=== PATIENT | male | born 1950 | race Caucasian/White ===

== ENCOUNTER 2016-09-19 16:52 | Inpatient (IN) ==
[2016-09-19] MEDS ORDERED: *HR* HYDROmorphone (PF) 1 MG/ML SYRINGE IVP ONE (18:23)
[2016-09-19] MEDS ORDERED: Ondansetron 4 MG/2 ML VIAL IVP ONE (18:23)
--- NOTE | 2016-09-19 18:32 | Emergency Department Note ---
Disposition Clinical Impression: Mucocele of appendix, Mass of cecum Abdominal pain Qualifiers: Abdominal location: right lower quadrant Qualified Code(s): R10.31 - Right lower quadrant pain Appendicitis Qualifiers: Appendicitis type: acute appendicitis Acute appendicitis type: with localized peritonitis Qualified Code(s): K35.3 - Acute appendicitis with localized peritonitis Disposition: Still a Patient Condition: Fair [facility]errals: [facility] [Primary Care Provider] - Forms: Work/School Release, ED Satisfaction Letter Abdominal Pain HPI - General Chief Complaint: ED Abdominal Pain Stated Complaint: ABD pain Time Seen by Provider: 09/19/16 18:03 Source: patient Mode of arrival: ambulatory Limitations: no limitations Nursing Notes Reviewed: Yes Vital Signs Reviewed: Yes - History of Present Illness HPI Narrative: Patient here for evaluation of abdominal pain. Abdominal pain started approximately one month ago but has been worsening in nature over the last week and acutely worse over the last several days.. Patient now complains of significant pain to the right lower quadrant. Patient has tenderness to the right lower quadrant as well as throughout the ascending colon. Patient's pain is worse with movement. Mother with breast cancer in her 40s. Dad had heart attack and relatively early. No other family history of cancer. Patient is a current smoker. Pain Scale: 10 - Related Data Allergies Allergy/AdvReac Type Severity Reaction Status Date / Time No Known Allergies Allergy Verified 09/19/16 16:58 Constitutional: Denies: fever, chills Cardiovascular: Denies: chest pain, palpitations Respiratory: Denies: cough, dyspnea Gastrointestinal: Reports: abdominal pain, nausea. Denies: vomiting, diarrhea, hematemesis Psychiatric: Denies: anxiety Endocrine: Denies: fatigue Abdominal Pain PMH - Past Medical History Medical history: Reports: GERD, hyperlipidemia, hypertension Male Surgical History: Reports: coronary bypass (CABG) Psychiatric history: Reports: PTSD - Social History Smoking status: Current every day smoker Alcohol use: Reports: rarely Drug use: Reports: none Physical Exam - General Limitations: no limitations General appearance: alert - Head Head exam: atraumatic, normocephalic - Eye Eye exam: Present: normal appearance - ENT ENT exam: normal exam, normal oropharynx - Neck Neck exam: Present: normal inspection - Chest Chest inspection: Present: normal inspection - Respiratory Respiratory exam: Present: normal lung sounds bilaterally. Absent: respiratory distress, wheezes - Cardiovascular Cardiovascular exam: Present: regular rate, normal rhythm - Abdominal Exam Abdominal exam: Present: soft, tenderness, guarding, rebound Abdominal tenderness: Present: RLQ, moderate - Extremities Exam Extremities exam: Present: normal inspection - Back Exam Back exam: Present: normal inspection - Neurological Exam Neurological exam: Present: alert, oriented X3 - Psychiatric Psychiatric exam: Present: normal affect, normal mood - Skin Skin exam: Present: warm, dry, intact Course - Reevaluation(s) Reevaluation #1: Patient educated extensively about CT scan findings. Patient awaiting evaluation by surgeon. Pain currently controlled. - Consultations Consultation #1: Discussed with Dr. Ramos. Patient will be evaluated in the emergency department after the surgery he is currently performing. Vital Signs Temperature 98.3 F 09/19/16 16:58 Pulse Rate 77 09/19/16 16:58 Respiratory Rate 16 09/19/16 16:58 Blood Pressure 157/89 09/19/16 16:58 O2 Sat by Pulse Oximetry 95 09/19/16 16:58 Temperature 98.3 F 09/19/16 16:58 Pulse Rate 77 09/19/16 16:58 Respiratory Rate 16 09/19/16 16:58 Blood Pressure 157/89 09/19/16 16:58 O2 Sat by Pulse Oximetry 95 09/19/16 16:58 Oxygen Delivery Oxygen Delivery Room Air
--- NOTE | 2016-09-19 18:33 | Emergency Department Note ---
START Narrative - START START: I examined this patient and my medical decision-making was reviewed with the MARKETING INFORMATION ANALYST/PA/Advanced Practice Nurse/Resident Physician. I agree with the documented findings, disposition and treatment plan as described except to the extent set forth below. ED attending: Patient's emergency medicine resident Dr. Parham. Please see copy of this note for H&P evaluation and management and ED disposition. We both had independent [id number] time in contact with this patient. Briefly: 66-year-old male right lower quadrant pain CT scan results per patient report from the [facility] 2 days ago she just dilated appendix consistent with possible acute appendicitis. Patient will get repeat labs and CT scan and surgical consult tonight. Disposition pending, admission possible, patient stable.
[2016-09-19 19:11] LABS: Basophils % 0.5 %; Eosinophils # 0.5 K/mcL (0.0-0.6); Eosinophils % 5.3 %; Hematocrit 45.4 % (37.5-50.1); Hemoglobin 15.2 g/dL (12.9-16.9); Immature Granulocytes % 0.5 % (0-4); Lymphocytes # 1.9 K/mcL (0.6-4.6); Lymphocytes % 22.1 %; Mean Corpuscular HGB Conc 33.5 g/dL (31.6-35.5); Mean Corpuscular Hemoglobin 30.8 pg (28.0-33.3); Mean Corpuscular Volume 92.1 fL (83.0-100.0); Mean Platelet Volume 8.8 fL (9.4-12.4); Monocytes # 1.2 K/mcL (0.0-1.3); Monocytes % 14.1 %; Platelet Count 223 K/mcL (140-400); Red Blood Count 4.93 M/mcL (4.19-5.50); Red Cell Distribution Width 13.1 % (11.5-14.5); Segmented Neutrophils % 57.5 %
[2016-09-19 19:19] LABS: INR 1.1; Prothrombin Time 12.2 Seconds (9.4-12.1)
[2016-09-19 19:21] LABS: Alanine Aminotransferase 29 Units/L (0-55); Albumin 3.3 g/dL (3.5-5.0); Albumin/Globulin Ratio 0.7 (1.1-2.2); Alkaline Phosphatase 131 Units/L (38-126); Aspartate Amino Transferase 25 Units/L (5-34); BUN/Creatinine Ratio 11 (6-26); Bilirubin,Direct 0.3 mg/dL (0.0-0.5); Bilirubin,Indirect 0.2 mg/dL (0.0-1.2); Bilirubin,Total 0.5 mg/dL (0.2-1.2); Blood Urea Nitrogen 9 mg/dL (8-26); Calcium 9.4 mg/dL (8.6-10.8); Carbon Dioxide 26 mEq/L (19-29); Chloride 102 mEq/L (98-109); Globulin 4.6 g/dL (2.4-3.5); Glucose 89 mg/dL (70-99); Lipase 29 Units/L (8-78); Osmolality,Calculated 280 (280-300); Potassium 4.3 mEq/L (3.5-4.5); Sodium 136 mEq/L (136-145); Total Protein 7.9 g/dL (6.0-8.3); eGFR For African Americans > 60 (> 60); eGFR For Non-African Americans > 60 (> 60)
--- NOTE | 2016-09-19 22:10 | General Surg History&Physical ---
Date of Encounter: 09/19/16 Time of Encounter: 22:07 Assessment and Plan (1) Mucocele of appendix Current Visit: Yes Status: Acute The assessment and plan as outlined above was discussed with the patient and/or family members who expressed understanding and agreement. All questions were answered. Explanted the patient that I personally reviewed the CT scan images showing an appendiceal mucocele likely due to a cecal obstruction of the origin of orifice of the appendix. This is concerning for mass effects or cancer. There is also an apparent possible mass in the liver which will require further evaluation. I would first like to schedule for colonoscopy after giving the bowel prep this evening. I did express to the patient this part of the evaluation process as to the etiology behind his abnormal CAT scan findings. Patient agrees with the above plan. History of Present Illness Chief complaint: Right lower abdominal pain HPI: Mr. Pena is a 66 year old male with a past medical history significant for CAD , presents to the ED with a 2 month history of episodic right lower abdominal pain. He states that over the past week the pain has worsened and increased in severity, and last night he had the onset of severe RLQ pain with nausea and dry heaves. He denies any diarrhea or constipation ad has never had a colonoscopy in the past. He denies any family history of colon cancer. He did have a CT scan of the abdomen and pelvis which showed a dilated appendix likely related to a mucocele, and an abnormality in the cecum concerning for a cecal mass as well as a possible liver lesion. Past Med Surg Social Fam HX - Past Medical History Medical history: GERD, hyperlipidemia, hypertension Psychiatric history: PTSD - Past Surgical History Surgical History: coronary bypass (CABG) (x3-2009) - Social History Smoking Status: Current every day smoker Smokeless Tobacco Status: No Alcohol use: rarely Drug use: none Medications and Allergies Atorvastatin Calcium [Lipitor] 10 mg PO DAILY 09/20/16 [History] Cetirizine HCl [All Day Allergy] 10 mg PO DAILY 09/20/16 [History] Docusate [Colace] 100 mg PO BID PRN #60 capsule 09/20/16 [Rx] Lisinopril [Zestril] 20 mg PO DAILY 09/20/16 [History] Metoprolol Tartrate 25 mg PO BID 09/20/16 [History] OxyCODONE/APAP 5/325 [Percocet 5/325 MG] 1 each PO Q6HR PRN #30 tablet 09/20/16 [Rx] Pantoprazole Sodium [Protonix] 40 mg PO DAILY 09/20/16 [History] Ranitidine HCl [Acid Piece Meat Trimmer] 150 mg PO BID 09/20/16 [History] Allergies albuterol [From DuoNeb] Allergy (Verified 09/20/16 10:15) See Comments etodolac Allergy (Verified 09/20/16 10:14) See Comments ipratropium [From DuoNeb] Allergy (Verified 09/20/16 10:15) See Comments bee stings Allergy (Uncoded 09/20/16 10:15) See Comments Review of Systems All systems PM: reviewed and no additional remarkable complaints except as stated All systems PM: A 10-system review of systems was performed and is negative for pertinent findings except as documented above in the HPI. General Surgery Exam Initial Vital Signs Temp Pulse Resp BP Pulse Ox 98.3 F 77 16 157/89 95 09/19/16 16:58 09/19/16 16:58 09/19/16 16:58 09/19/16 16:58 09/19/16 16:58 - General physical appearance well developed, well nourished, moderate distress - Eyes PERRL, normal ocular movement - Neck no masses, trachea midline, no lymphadectomy - Respiratory normal expansion, normal respiratory effort, clear to auscultation - Cardiovascular Cardiovascular exam: Present: RRR, no murmurs/rubs/gallops - Abdomen Abdomen general surgery: Present: bowel sounds present, soft (Obese), tender ( RLQ pain to palpation.) - Integumentary Integumentary general surgery: Present: warm and dry - Neurologic Present: CN 2-12 grossly intact - Musculoskeletal Present: other (No clubbing, cyanosis, or edema) - Psychiatric Psychiatric general surgery: Present: A&Ox3, appropriate, oriented to person, oriented to place Results - Labs 09/20/16 04:17 09/20/16 04:17 Abnormal lab results MPV 8.8 fL (9.4-12.4) L 09/19/16 18:47 PT 12.2 Seconds (9.4-12.1) H 09/19/16 18:47 Alkaline Phosphatase 131 Units/L (38-126) H 09/19/16 18:47 Albumin 3.3 g/dL (3.5-5.0) L 09/19/16 18:47 Globulin 4.6 g/dL (2.4-3.5) H 09/19/16 18:47 Albumin/Globulin Ratio 0.7 (1.1-2.2) L 09/19/16 18:47 Diabetes panel 09/19/16 Range/Units 18:47 Sodium 136 (136-145) mEq/L Potassium 4.3 (3.5-4.5) mEq/L Chloride 102 (98-109) mEq/L Carbon Dioxide 26 (19-29) mEq/L BUN 9 (8-26) mg/dL Creatinine 0.84 (0.72-1.25) mg/dL Glucose 89 (70-99) mg/dL Calcium 9.4 (8.6-10.8) mg/dL AST 25 (5-34) Units/L ALT 29 (0-55) Units/L Alkaline Phosphatase 131 H (38-126) Units/L Albumin 3.3 L (3.5-5.0) g/dL Calcium panel 09/19/16 Range/Units 18:47 Calcium 9.4 (8.6-10.8) mg/dL Albumin 3.3 L (3.5-5.0) g/dL Pituitary panel 09/19/16 Range/Units 18:47 Sodium 136 (136-145) mEq/L Potassium 4.3 (3.5-4.5) mEq/L Chloride 102 (98-109) mEq/L Carbon Dioxide 26 (19-29) mEq/L BUN 9 (8-26) mg/dL Creatinine 0.84 (0.72-1.25) mg/dL Glucose 89 (70-99) mg/dL Calcium 9.4 (8.6-10.8) mg/dL Adrenal panel 09/19/16 Range/Units 18:47 Sodium 136 (136-145) mEq/L Potassium 4.3 (3.5-4.5) mEq/L Chloride 102 (98-109) mEq/L Carbon Dioxide 26 (19-29) mEq/L BUN 9 (8-26) mg/dL Creatinine 0.84 (0.72-1.25) mg/dL Glucose 89 (70-99) mg/dL Calcium 9.4 (8.6-10.8) mg/dL Total Bilirubin 0.5 (0.2-1.2) mg/dL AST 25 (5-34) Units/L ALT 29 (0-55) Units/L Alkaline Phosphatase 131 H (38-126) Units/L Albumin 3.3 L (3.5-5.0) g/dL All other labs normal. - Imaging CT scan - abdomen: report reviewed, image reviewed (Enlarged appendix and thickening of the cecum likley due to a mass obstructing the lumen of the appendix. Possible liver mass)
[2016-09-19] MEDS ORDERED: Polyethylene Glycol 3350 255 GM POWDER PO ONE (23:24)
[2016-09-19] MEDS ORDERED: Ondansetron 4 MG/2 ML VIAL IVP PRN (23:24)
[2016-09-19] MEDS ORDERED: *HR* HYDROmorphone (PF) 1 MG/ML SYRINGE IVP PRN (23:24)
[2016-09-20 00:12] LABS: Carcinoembryonic Antigen 6.2 ng/mL (0-5.0)
[2016-09-20] MEDS: 0.9 % Sodium Chloride 1,000 ML IVC SCH ×2 (00:36→15:31)
[2016-09-20 05:01] LABS: Basophils % 0.4 %; Eosinophils # 0.4 K/mcL (0.0-0.6); Eosinophils % 5.6 %; Hematocrit 43.4 % (37.5-50.1); Hemoglobin 14.6 g/dL (12.9-16.9); Immature Granulocytes % 0.4 % (0-4); Lymphocytes # 1.3 K/mcL (0.6-4.6); Lymphocytes % 16.4 %; Mean Corpuscular HGB Conc 33.6 g/dL (31.6-35.5); Mean Corpuscular Hemoglobin 31.5 pg (28.0-33.3); Mean Corpuscular Volume 93.5 fL (83.0-100.0); Mean Platelet Volume 9.2 fL (9.4-12.4); Monocytes # 1.1 K/mcL (0.0-1.3); Monocytes % 13.9 %; Platelet Count 212 K/mcL (140-400); Red Blood Count 4.64 M/mcL (4.19-5.50); Red Cell Distribution Width 13.2 % (11.5-14.5); Segmented Neutrophils % 63.3 %
[2016-09-20 05:24] LABS: BUN/Creatinine Ratio 11 (6-26); Blood Urea Nitrogen 9 mg/dL (8-26); Calcium 8.9 mg/dL (8.6-10.8); Carbon Dioxide 23 mEq/L (19-29); Chloride 100 mEq/L (98-109); Glucose 156 mg/dL (70-99); Osmolality,Calculated 280 (280-300); Sodium 134 mEq/L (136-145); eGFR For African Americans > 60 (> 60); eGFR For Non-African Americans > 60 (> 60)
[2016-09-20] MEDS: *HR* Heparin 5,000 UNIT/ML VIAL SQ SCH ×2 (05:59→17:56)
[2016-09-20] MEDS ORDERED: Pantoprazole 40 MG VIAL IVP SCH (09:00)
[2016-09-20] MEDS: *HR* Metoprolol 5 MG/5 ML VIAL IVP SCH ×2 (12:58→17:56)
[2016-09-20] MEDS ORDERED: *HR* Midazolam HCl 5 MG/5 ML VIAL IVP ONE (13:29)
[2016-09-20] MEDS ORDERED: *HR* FentaNYL (PF) 100 MCG/2 ML VIAL ONE (13:30)
[2016-09-20] MEDS ORDERED: 0.9 % Sodium Chloride 1,000 ML IVC SCH (14:00)
[2016-09-20] MEDS ORDERED: *HR* Promethazine 25 MG/ML VIAL IVP ONE (14:13)
[2016-09-20] MEDS ORDERED: Simethicone 40 MG/0.6 ML MLS IR ONE (14:13)
--- NOTE | 2016-09-20 14:13 | Pre-Sedation Evaluation ---
Pre-sedation evaluation - Pre-sedation checklist Date of procedure: 09/20/16 Procedure: colonoscopy Recent Vitals: Last Vital Signs Temp 98 F 09/20/16 13:34 Pulse 58 09/20/16 13:34 Resp 16 09/20/16 13:34 BP 158/80 09/20/16 13:34 Pulse Ox 97 09/20/16 13:34 H&P (including ROS) documented in medical record: Yes Previous reaction to sedatives/anesthetics: No Dietary Status: NPO after Midnight Airway Assessment: Patient can open mouth completely, TMJ function normal Dentition: poor dentition Possible difficult airway: No ASA Classification *see protocol: CLASS III-Severe systemic disease Plan of Care: Pt appropriate candidate for procedure/moderate/conscious sedation
[2016-09-20] MEDS: *HR* FentaNYL (PF) 100 MCG/2 ML VIAL IVP PRN ×2 (14:16→14:18)
[2016-09-20] MEDS: *HR* Midazolam HCl 5 MG/5 ML VIAL IVP PRN ×2 (14:16→14:18)
--- NOTE | 2016-09-20 15:49 | Discharge Summary ---
<Kira Romero - Last Filed: 09/20/16 15:51> Date of Encounter: 09/20/16 Time of Encounter: 15:47 - Discharge Diagnosis (1) Mass of cecum Priority: Primary Status: Acute (2) Mucocele of appendix Priority: Primary Status: Acute - Discharge Medications Prescriptions: OxyCODONE/APAP 5/325 [Percocet 5/325 MG] 1 each PO Q6HR PRN #30 tablet PRN Reason: Pain Docusate [Colace] 100 mg PO BID PRN #60 capsule PRN Reason: Constipation Home Medications: Atorvastatin Calcium [Lipitor] 10 mg PO DAILY 09/20/16 [History] Cetirizine HCl [All Day Allergy] 10 mg PO DAILY 09/20/16 [History] Docusate [Colace] 100 mg PO BID PRN #60 capsule 09/20/16 [Rx] Lisinopril [Zestril] 20 mg PO DAILY 09/20/16 [History] Metoprolol Tartrate 25 mg PO BID 09/20/16 [History] OxyCODONE/APAP 5/325 [Percocet 5/325 MG] 1 each PO Q6HR PRN #30 tablet 09/20/16 [Rx] Pantoprazole Sodium [Protonix] 40 mg PO DAILY 09/20/16 [History] Ranitidine HCl [Acid Site Damage Prevention Technician] 150 mg PO BID 09/20/16 [History] Allergies/Adverse Reactions: Allergies albuterol [From DuoNeb] Allergy (Verified 09/20/16 10:15) See Comments etodolac Allergy (Verified 09/20/16 10:14) See Comments ipratropium [From DuoNeb] Allergy (Verified 09/20/16 10:15) See Comments bee stings Allergy (Uncoded 09/20/16 10:15) See Comments General Surgery Exam Initial Vital Signs Temp Pulse Resp BP Pulse Ox 98.3 F 77 16 157/89 95 09/19/16 16:58 09/19/16 16:58 09/19/16 16:58 09/19/16 16:58 09/19/16 16:58 - General physical appearance well developed, well nourished, no distress, no pain - Eyes normal ocular movement - ENT normal mucosa, atraumatic, normocephalic - Neck trachea midline - Respiratory normal respiratory effort, clear to auscultation - Cardiovascular Cardiovascular exam: Present: RRR, 15, 16 - Abdomen Abdomen general surgery: Present: bowel sounds present, soft, non tender - Neurologic Present: CN 2-12 grossly intact - Musculoskeletal Present: normal gait, normal posture - Psychiatric Psychiatric general surgery: Present: appropriate, oriented to person, oriented to place, oriented to time, speech is normal, memory intact Date of admission: 09/20/16 12:20 Primary care physician: PCP [place] Discharging clinician: Zhou Ramos (Gely Daleyham) Anticipated date of discharge: 09/20/16 - Patient Status Disposition: Home, Self-Care Condition: Good Functional capacity at discharge: independent ambulation Overall status at discharge: patient is progressing back to baseline - Discharge Instructions Instructions: Oxycodone/Acetaminophen (By mouth), Laxative, Stool Softeners ( By mouth) Follow Up With: [place],PCP [Primary Care Provider] - Zhou Ramos MD [Partnered Physician] - 09/26/16 2:05 pm (hospital follow- up) - Diet and Activity Activity: increase activity as tolerated Diet: advance to your usual diet - Hospital Course Hospital course: Mr. Pena is a 66 year old male presented to the hospital with complaints of RLQ pain. His CT showed concerns for an appendiceal mucocele, cecal mass and possible liver lesion. His CEA was mildly elevated. He was placed on conservative/supportive treatments and prepped for a colonoscopy. 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 We will advance his diet and begin discharge planning to home. Plan for outpatient follow-up in 1 week to review pathology and to make decisions on how to proceed with the patients care. - Time Spent with Patient Total time spent providing and/or coordinating discharge services: Less than 30 minutes - Attending Attestation I examined this patient and my medical decision-making was reviewed with the TABLE COVER FOLDER/PA/Advanced Practice Nurse/Resident Physician. I agree with the documented findings, disposition and treatment plan as described except to the extent set forth below. <Zhou Ramos - Last Filed: 09/20/16 17:11> - Discharge Diagnosis (1) Mucocele of appendix Status: Acute General Surgery Exam Initial Vital Signs Temp Pulse Resp BP Pulse Ox 98.3 F 77 16 157/89 95 09/19/16 16:58 09/19/16 16:58 09/19/16 16:58 09/19/16 16:58 09/19/16 16:58 Date of admission: 09/20/16 12:20 Primary care physician: PCP [place] - Patient Status Functional capacity at discharge: independent ambulation Overall status at discharge: patient is progressing back to baseline - Hospital Course Hospital course: Mr. Pena is a 66 year old male - Time Spent with Patient Total time spent providing and/or coordinating discharge services: - Attending Attestation I reviewed the above and agree with discharge home with follow up next week to discuss biopsy results.
[2016-09-20 18:05] VITALS: BP 157/96
== END 2016-09-20 18:55 | disposition home or self-care (01) | DRG 395 ==
LOC: EMEROO 16:52 → 3BNU 16:52
PROVIDERS: ADMIT Surgery; ATTEND Surgery